=== PATIENT | male | born 1990 | race Caucasian/White ===

== ENCOUNTER 2017-07-04 16:24 | Emergency (ER) | payer OTHER ==
[2017-07-04 16:30] VITALS: BP 142/89; PULSE 64; RESP 16; TEMP 99.1
[2017-07-04] MEDS ORDERED: DIPH,PERTUS(ACELL)TETVAC-LF 0.5 ML VIAL IM ONE (16:35)
[2017-07-04] MEDS ORDERED: IBUPROFEN 600 MG STARTER PACK 4 TAB BTL PO STA (16:40)
--- NOTE | 2017-07-04 16:41 | ED ---
Upper Extremity HPI - General Chief Complaint: Extremity Injury, Upper Stated Complaint: [facility]-Arm Laceration Time Seen by Provider: 07/04/17 16:33 Source: patient, RN notes reviewed, old records reviewed Mode of arrival: ambulatory Limitations: no limitations - History of Present Illness Initial Comments: 26-year-old male presents emergency Department chief complaint of left arm bruising after his arm was pinned between a machine at his work. He reports that he does have a small laceration radial head area. Patient reports no pain with range of motion in his hand or arm. He does report there is been some moderate swelling. He states that he has full range motion of the elbow, wrist and fingers and hand. Denies any peripheral paresthesias. She does not know the last time he had a tetanus vaccination. Patient denies any recent fever, chills, shortness of breath, chest pain, back pain, abdominal pain, nausea vomiting, numbness or tingling, dysuria or hematuria, constipation or diarrhea, headaches or visual changes, or any other current symptoms - Related Data Home Medications Medication Instructions Recorded Confirmed No Known Home Medications [No 07/04/17 07/04/17 Known Home Medications] Allergies Allergy/AdvReac Type Severity Reaction Status Date / Time No Known Allergies Allergy Verified 07/04/17 16:47 Review of Systems ROS Statement: Those systems with pertinent positive or pertinent negative responses have been documented in the HPI. ROS Other: All systems not noted in ROS Statement are negative. Past Medical History Past Medical History: No Reported History History of Any Multi-Drug Resistant Organisms: None Reported Past Surgical History: No Surgical Hx Reported Additional Past Surgical History / Comment(s): (R) lower extremity fx. Past Psychological History: No Psychological Hx Reported Smoking Status: Current every day smoker Past Alcohol Use History: Occasional Past Drug Use History: None Reported General Exam - General Exam Comments Initial Comments: Well-appearing 26-year-old male. No acute distress. Limitations: no limitations Head exam: Present: atraumatic, normocephalic, normal inspection Eye exam: Present: normal appearance, PERRL, EOMI. Absent: scleral icterus, conjunctival injection, periorbital swelling ENT exam: Present: normal exam Neck exam: Present: normal inspection. Absent: tenderness, meningismus, lymphadenopathy Respiratory exam: Present: normal lung sounds bilaterally. Absent: respiratory distress, wheezes, rales, rhonchi, stridor Cardiovascular Exam: Present: regular rate, normal rhythm, normal heart sounds. Absent: systolic murmur, diastolic murmur, rubs, gallop, clicks GI/Abdominal exam: Present: soft, normal bowel sounds. Absent: distended, tenderness, guarding, rebound, rigid Extremities exam: Present: normal inspection, full ROM, normal capillary refill. Absent: tenderness, pedal edema, joint swelling, calf tenderness Left Shoulder Exam: Present: normal inspection, full ROM Upper Arm exam: Present: normal inspection, full ROM Elbow exam: Present: normal inspection, full ROM, laceration (Is a small 1 cm laceration/superficial puncture wound over the radial aspect of the forearm.) Forearm Wrist exam: Present: normal inspection, full ROM. Absent: tenderness ( Patient has no bony tenderness.) Hand Wrist exam: Present: normal inspection, full ROM Neuro motor exam: Present: wrist extension intact, thumb opposition intact, thumb IP flexion intact, thumb adduction intact, fingers 2-5 abduction intact Vascular: Present: normal capillary refill Back exam: Present: normal inspection Neurological exam: Present: alert, oriented X3, CN II-XII intact Psychiatric exam: Present: normal affect Skin exam: Present: warm, dry, intact, normal color. Absent: rash Course Vital Signs 07/04/17 16:27 Temperature 99.1 F Pulse Rate 64 Respiratory 16 Rate Blood Pressure 142/89 O2 Sat by Pulse 97 Oximetry Medical Decision Making - Medical Decision Making 26-year-old male presents emergency Department chief complaint of left arm bruising after his arm was pinned between a machine at his work. He reports that he does have a small laceration radial head area. Patient reports no pain with range of motion in his hand or arm. He does report there is been some moderate swelling. Patient's laceration was cleaned with Betadine and sterile dressing was applied. Discussed monitoring for any signs of infection like redness swelling or drainage. Discussed that it is not easy because of superficial and minor puncture wound. Discussed that he has full range of motion no point bony tenderness, concern for any scratch or bone. Patient agrees and declines any x-rays. Patient was given Motrin starter pack for pain , and ice over the area. He does have some minor bruising as well. Patient will be discharged at this time advised to follow-up with primary care provider. Patient states she will comply. Patient is also was updated on his tetanus vaccine. Disposition Clinical Impression: Contusion of left arm, Puncture wound of left upper arm Disposition: HOME SELF-CARE Condition: Good Instructions: Puncture Wound (ED), Contusion in Adults (ED) Additional Instructions: Patient advised to monitor for any signs of infection over the area of laceration. Keep it covered. Take Motrin or Tylenol for pain. Patient also advised to apply ice over the arm. Return to emergency department if any alarming signs or symptoms occur. Referrals: None,Stated [Primary Care Provider] - 1-2 days Tania Rossi MD [STAFF PHYSICIAN] - 1-2 days Time of Disposition: 16:40
== END 2017-07-04 17:08 | disposition home or self-care (01) ==
LOC: EC 16:24
DX: S51.832A Puncture wound without foreign body of left forearm, initial encounter (principal); F17.200 Nicotine dependence, unspecified, uncomplicated; Z23 Encounter for immunization; W31.89XA Contact with other specified machinery, initial encounter; Y99.0 Civilian activity done for income or pay; Y92.69 Other specified industrial and construction area as the place of occurrence of the external cause
CPT/HCPCS: 90471; 90715; 99283